=== PATIENT | female | born 1990 | race African-American/Black ===

== ENCOUNTER 2018-11-27 08:08 | Emergency (ER) | payer MEDICAID ==
[~2018-11-27] VITALS: Ht 180.3 cm; Wt 71.8 kg
[2018-11-27 08:15] VITALS: TEMP 98.5
[2018-11-27 08:26] LABS: COLLECTION METHOD CLEAN CATCH
[2018-11-27 08:36] LABS: AMORPHOUS CRYSTAL Present /uL; PH 8 (5-8); SQUAMOUS EPITHELIAL 0-2 /hpf; URINE APPEARANCE Cloudy; URINE BACTERIA None Seen /hpf; URINE BILIRUBIN Negative (NEGATIVE); URINE BLOOD Negative (NEGATIVE); URINE COLOR Yellow; URINE GLUCOSE Negative (NEGATIVE); URINE KETONE Negative (NEGATIVE); URINE LEUKOCYTE ESTERASE Negative (NEGATIVE); URINE NITRATE Negative (NEGATIVE); URINE PROTEIN(semi-quant) Negative (NEGATIVE); URINE RBC 0-2 /hpf; URINE UROBILINOGEN Negative (NEGATIVE)
[2018-11-27] MEDS ORDERED: PHENERGAN 25 TA25 MG PO (10:40)
[2018-11-27 11:00] VITALS: BP 96/74; PULSE 91
== END 2018-11-27 11:02 | disposition home or self-care (01) ==
LOC: COL.ER 08:08
PROVIDERS: Emergency Medicine
DX: O26.891 Other specified pregnancy related conditions, first trimester (principal); R10.2 Pelvic and perineal pain; Z3A.14 14 weeks gestation of pregnancy; Z90.89 Acquired absence of other organs

== ENCOUNTER 2019-01-03 20:47 | Emergency (ER) | payer MEDICAID ==
[~2019-01-03] VITALS: Ht 180.3 cm; Wt 71.4 kg
[~2019-01-03 20:47] MED LIST: PHENERGAN 25 TA25 MG PO
[2019-01-03 21:03] VITALS: TEMP 98.3
[2019-01-03] MEDS ORDERED: DICLEGIS PO ×2 (22:56→23:54)
[2019-01-03] MEDS ORDERED: PRENA1 CHEW1 CT1 PO (23:11)
[2019-01-03 23:19] LABS: BASO % 0.4 % (0.0-2.0); EOS # 0.2 (0.0-0.7); EOS % 2.2 % (0-4.0); GRAN # 4.5 (1.4-6.5); GRAN % 58.6 % (42.2-75.2); HEMOGLOBIN 10.2 g/dl (12.5-16.0); LYMPH # 2.4 (1.2-3.4); LYMPH % 31.6 % (20.0-51.0); MEAN CELL VOLUME 83 fl (80.0-100.0); MEAN CORPUSCULAR HEMOGLOBIN 26 pg (27.0-31.0); MEAN CORPUSCULAR HGB CONC 32 g/dl (33.0-37.0); MEAN PLATELET VOLUME 11.3 fl (7.4-10.4); MONO # 0.5 (0.1-0.6); MONO % 6.9 % (1.7-9.3); PLATELET COUNT 229 K/mm3 (130-400); RED BLOOD COUNT 3.88 M/mm3 (4.10-5.30); REDCELL DISTRIBUTION WIDTH-CV 14.6 % (11.5-14.5)
[2019-01-03 23:29] LABS: CALCIUM 8.6 mg/dL (8.4-10.2); CREATININE, serum 0.63 mg/dL (0.52-1.25); POTASSIUM 3.6 mmol/L (3.4-5.0)
[2019-01-03 23:31] LABS: HEMATOCRIT 32.2 % (37.0-47.0)
[2019-01-04 00:01] LABS: COLLECTION METHOD CLEAN CATCH
[2019-01-04 00:12] LABS: MUCOUS Present /lpf; PH 7 (5-8); URINE APPEARANCE Clear; URINE BACTERIA Rare /hpf; URINE BILIRUBIN Negative (NEGATIVE); URINE BLOOD Negative (NEGATIVE); URINE COLOR Straw; URINE GLUCOSE Negative (NEGATIVE); URINE KETONE Negative (NEGATIVE); URINE LEUKOCYTE ESTERASE Negative (NEGATIVE); URINE NITRATE Negative (NEGATIVE); URINE PROTEIN(semi-quant) Negative (NEGATIVE); URINE RBC 0-2 /hpf; URINE UROBILINOGEN Negative (NEGATIVE)
[2019-01-04 00:30] VITALS: BP 105/73; PULSE 77
== END 2019-01-04 00:34 | disposition home or self-care (01) ==
LOC: COL.ER 20:47
PROVIDERS: Emergency Medicine
DX: O21.9 Vomiting of pregnancy, unspecified (principal); Z3A.18 18 weeks gestation of pregnancy
CPT/HCPCS: J2550; J7030

== ENCOUNTER 2019-03-30 13:46 | Inpatient (IN) | payer MEDICAID ==
[~2019-03-30] VITALS: Ht 177.8 cm; Wt 76.4 kg
[2019-03-30] VITALS (24 sets, daily range): BP systolic 113–145; BP diastolic 60–87; PULSE 75–114; TEMP 97.2–97.8
[~2019-03-30 13:46] MED LIST changes: +DICLEGIS PO; +PRENA1 CHEW1 CT1 PO
--- NOTE | 2019-03-30 13:55 | NUR ---
PATIENT TO LR 3. PATIENT COMPLAINS OF LEAKING OF FLUID. PATIENT HAS HAD MODERATE CONTRACTIONS WELL. PATIENT STATES SHE HAD MODERATE BLEEEDING 1 WEEK AGO WITH INTERCOURSE. PATIENT ON EFM, PATIENT BREATHING THROUGH CONTRACTIONS.
[2019-03-30 15:10] LABS: COLLECTION METHOD CLEAN CATCH
[2019-03-30 15:14] LABS: BASO % 0.4 % (0.0-2.0); EOS # 0.1 (0.0-0.7); EOS % 1.3 % (0-4.0); GRAN # 5.9 (1.4-6.5); GRAN % 66.4 % (42.2-75.2); HEMOGLOBIN 10.9 g/dl (12.5-16.0); LYMPH % 22.2 % (20.0-51.0); MEAN CELL VOLUME 82 fl (80.0-100.0); MEAN CORPUSCULAR HEMOGLOBIN 26 pg (27.0-31.0); MEAN CORPUSCULAR HGB CONC 32 g/dl (33.0-37.0); MEAN PLATELET VOLUME 12.4 fl (7.4-10.4); MONO # 0.8 (0.1-0.6); MONO % 9.3 % (1.7-9.3); PLATELET COUNT 209 K/mm3 (130-400); RED BLOOD COUNT 4.17 M/mm3 (4.10-5.30); REDCELL DISTRIBUTION WIDTH-CV 14.8 % (11.5-14.5)
[2019-03-30 15:19] LABS: HEMATOCRIT 34.3 % (37.0-47.0)
[2019-03-30 15:21] LABS: MUCOUS Present /lpf; PH 7 (5-8); URINE APPEARANCE Hazy; URINE BACTERIA None Seen /hpf; URINE BILIRUBIN Negative (NEGATIVE); URINE BLOOD Negative (NEGATIVE); URINE COLOR Yellow; URINE GLUCOSE Negative (NEGATIVE); URINE KETONE Negative (NEGATIVE); URINE LEUKOCYTE ESTERASE 3+ (NEGATIVE); URINE NITRATE Negative (NEGATIVE); URINE PROTEIN(semi-quant) Negative (NEGATIVE); URINE UROBILINOGEN Negative (NEGATIVE); URINE WBC 20-50 /hpf
[2019-03-30 15:26] LABS: ALBUMIN 3.4 gm/dL (3.5-5.0); BILIRUBIN,TOTAL 0.3 mg/dL (0.0-1.0); CALCIUM 8.6 mg/dL (8.4-10.2); CREATININE, serum 0.54 (0.52-1.25); POTASSIUM 3.3 mmol/L (3.4-5.0); TOTAL PROTEIN 6.8 gm/dL (6.4-8.2)
[2019-03-30 15:31] LABS: TRICYCLIC ANTIDEPRESS URINE NEGATIVE
--- NOTE | 2019-03-30 18:25 | NUR ---
1824- Dr. García and [facility] NICU transport team at the bedside. FHR tracing reviewed. 1832- Mag infusion turned off per Dr. García's order. 1834- Bedside ultrasound done per Dr. García. Vertex positon verified. 1837- SVE per Dr. García 7/80/-2. AROM with moderate amount of clear fluid. 1849- SVE per Dr. García 880/-2. 1907- SVE per Dr. García 980/-2. 1923- SVE per Dr. García 80/-2. Orders to start pitocin received. 1924- Pitocin started at 2ml/hr per order. 1946- SVE per Dr. García 9100/-2 2004- Pt reports feeling pressure. Dr García and NICU transport team back at the bedside. Pt set up for delivery. 2015- Pushing started. of viable female . Cords clamped and cut. Care of the given to NICU transport team at the bedside. 2019- of placenta. Retained membranes per Dr. García. Additional staff and FOUR SLIDE MACHINE OPERATOR called to bedside for assistance. 2024- KERRIE Angeles at the bedside. See anesthesia record for details. 2029- Pitocin started 333ml/hr per order and protocol. Fundus firm and lochia WNL.
--- NOTE | 2019-03-30 22:30 | NUR ---
Pt up to the bathroom with standby assist and without complications. Pt able to void. Janis-care done. Pt transferred to room 215 ambulatory. Oriented to room, bed and call light within reach. Plan of care reviewed.
[2019-03-31 00:02] VITALS: BP 134/65; PULSE 85; TEMP 97.5
[2019-03-31 03:44] VITALS: BP 112/72; PULSE 100; TEMP 98
--- NOTE | 2019-03-31 03:44 | NUR ---
Pt called for assistance while in the bathroom for concerns with blood clots. Blood clot seen by this RN to be approximately the size of a plum. Assisted pt with elizabeth-care and back to bed. Fundus firm with no more clots expressed. Vitals signs WNL. Will continue to monitor.
[2019-03-31 07:44] VITALS: BP 104/64; PULSE 97; TEMP 97.1
--- NOTE | 2019-03-31 07:45 | NUR ---
Rests in bed, alert. Denies any needs at this time.
[2019-03-31] MEDS ORDERED: IBU800 M1 PO (09:30)
--- NOTE | 2019-03-31 09:46 | NUR ---
Initial visit; Parents thanked Charging Board Operator for offering congratulations on the of their daughter. Child was sent to [facility] and Mom states she is showing signs of improvement.
[2019-03-31 11:15] VITALS: BP 120/68; PULSE 79; TEMP 98.2
--- NOTE | 2019-03-31 16:25 | NUR ---
EDUARDO's responded to consult and met with the patient and father of baby, Dinah Carr. The patient went into labor and her UDS was positive for marijuna. The baby was transferred to the [facility] NICU. The patient lives in [place] with the father of baby and their [id number] child. She states that they recently moved here from [place], due to things being cheaper. She works at [employer]. She states that she has clothes and WIC set up. She reports not having a car seat yet, but plans to order one through her insurance, due to them having car seats for low weight babies. SW's addressed the patient's marijuana use. She states that she plans to quit smoking, so that she can breast feed. The patient and father of baby do not have a vehicle, but she states that she utilizes transportation services through her insurance, [employer], for rides to all appointments. The patient and Dinah would like to stay at the [facility]. EDUARDO contacted EDUARDO Bee at [facility], for referral to the [facility]. The patient was approved. EDUARDO updated the patient's nurse. The patient is to discharge today, 03/31, and will receive transportation to the [facility] through her insurance. EDUARDO did make a CPS report. Intake ID#[id number].
--- NOTE | 2019-03-31 18:45 | NUR ---
Pt reports she spoke with insurance provided transportation to cancel her discharge ride. Pt discharged home ambulatory and planning to ride the city bus home. This RN escorted pt to hospital entrance without complications.
== END 2019-03-31 18:45 | disposition home or self-care (01) | DRG 797 ==
LOC: LDRO 13:46 → LDR 13:55 → LDRO 15:29 → LDR 15:30 → OB 15:30
PROVIDERS: ADMIT Obstetrics & Gynecology
PROC: 10E0XZZ Delivery of Products of Conception, External Approach (ICD-10-PCS; principal; 2019-03-30)
PROC: 10D17ZZ Extraction of Products of Conception, Retained, Via Natural or Artificial Opening (ICD-10-PCS; 2019-03-30)
DX: O60.14X0 Preterm labor third trimester with preterm delivery third trimester, not applicable or unspecified (principal); O99.323 Drug use complicating pregnancy, third trimester; Z37.0 Single live birth; O98.32 Other infections with a predominantly sexual mode of transmission complicating childbirth; F12.90 Cannabis use, unspecified, uncomplicated; O73.1 Retained portions of placenta and membranes, without hemorrhage; A56.8 Sexually transmitted chlamydial infection of other sites; O99.344 Other mental disorders complicating childbirth; F41.9 Anxiety disorder, unspecified; Z3A.30 30 weeks gestation of pregnancy
CPT/HCPCS: J0702; J2540; J2590; J2704; J3010; J3105; J3475; J7120

== ENCOUNTER 2019-04-30 19:08 | Emergency (ER) | payer MEDICAID ==
[~2019-04-30] VITALS: Ht 180.3 cm; Wt 76.4 kg
[~2019-04-30 19:08] MED LIST changes: +IBU800 M1 PO
[2019-04-30 19:11] VITALS: BP 118/67; TEMP 97.7
[2019-04-30 20:19] VITALS: PULSE 91
== END 2019-04-30 20:20 | disposition home or self-care (01) ==
LOC: COL.ER 19:08
DX: S66.510A Strain of intrinsic muscle, fascia and tendon of right index finger at wrist and hand level, initial encounter (principal); X50.0XXA Overexertion from strenuous movement or load, initial encounter; Y92.009 Unspecified place in unspecified non-institutional (private) residence as the place of occurrence of the external cause